=== PATIENT | female | born 1995 | race Caucasian/White ===

== ENCOUNTER 2016-10-22 15:54 | Emergency (ER) | payer OTHER ==
[~2016-10-22] VITALS: Ht 170.2 cm; Wt 131.0 kg
[~2016-10-22 15:54] MED LIST: IBUP800T23 PO; METH750T2 PO; Z.0.BCPILL PO
[2016-10-22 15:58] VITALS: BP 128/85; PULSE 89; RESP 16; TEMP 99; O2SAT 99
[2016-10-22] MEDS ORDERED: [UNRECOGNIZED DRUG - OTHER] (16:08)
[2016-10-22] MEDS ORDERED: ONDANSETRON HCL 4 MG/2 ML VIAL IVP ONE (16:15)
[2016-10-22] MEDS ORDERED: SODIUM CHLORIDE 0.9% FLUSH 10 ML FLUSH IV FLUSH PRN (16:15)
[2016-10-22 16:19] LABS: BLOOD, URINE NEG (NEG); GLUCOSE,URINE NEG (NEG); KETONE, URINE NEG (NEG); NITRITE,URINE NEG (NEG); PH, URINE 5.5 (5.0-8.5)
--- NOTE | 2016-10-22 16:19 | PD ---
HPI Chief Complaint: GI Complaint Time Seen by Provider: 16:05 Travel History International Travel<30 days: No Contact w/Intl Traveler<30days: No Traveled to known affect area: No History of Present Illness HPI The patient was seen and examined in the presence of the nurse. She complains of abdominal pain and cramping for 5 days on and off. She's had some nausea. No constipation or diarrhea or fever. Her abdominal pain has resolved at this time. No alleviating factors. She does feel nausea. Symptoms severity was moderate but now is mild. No abdominal surgeries or medical history. PFSH Past Medical History ADHD: Yes Asthma: Yes Bipolar Disorder: Yes Cancer: No Diabetes: No Diminished Hearing: No GERD: Yes Psychiatric: No Reproductive: Yes (POLY-CYSTIC OVARIES) Immunizations Current: Yes Seizures: No Thyroid Disease: No Ulcer: No ?: Not Past Surgical History Other Surgery: No Social History Alcohol Use: Yes (Occasional use-last use 1 month) Tobacco Use: No Substance Use: No Allergies-Medications (Allergen,Severity, Reaction): Coded Allergies: No Known Allergies (Verified , 10/22/16) Reported Meds & Prescriptions Reported Meds & Active Scripts Active Zofran (Ondansetron HCl) 4 Mg Tab 4 Mg PO Q6HR PRN Tramadol (Tramadol HCl) 50 Mg Tab 50 Mg PO Q6H PRN Reported [Med Study] Review of Systems General / Constitutional: No: Fever Eyes: No: Visual changes HENT: No: Headaches Cardiovascular: No: Chest Pain or Discomfort Respiratory: No: Shortness of Breath Gastrointestinal: Positive: Nausea, Abdominal Pain Genitourinary: No: Dysuria Musculoskeletal: No: Pain Skin: No Rash Neurologic: No: Weakness Psychiatric: No: Depression Endocrine: No: Polydipsia Hematologic/Lymphatic: No: Easy Bruising Physical Exam Narrative GENERAL: Well-nourished, well-developed patient in no apparent distress. SKIN: Focused skin assessment reveals no rash and nodules. Skin is Warm and dry. HEAD: Atraumatic. Normocephalic. EYES: Pupils equal and round. No scleral icterus. No injection or drainage. ENT: No nasal bleeding or discharge. Mucous membranes pink and moist. NECK: Trachea midline. No JVD. CARDIOVASCULAR: Regular rate and rhythm. No murmur appreciated. RESPIRATORY: No accessory muscle use. Clear to auscultation. Breath sounds equal bilaterally. GASTROINTESTINAL: Abdomen soft, non-tender, nondistended. Hepatic and splenic margins not palpable. MUSCULOSKELETAL: No obvious deformities. No clubbing. No cyanosis. No edema. NEUROLOGICAL: Awake and alert. No obvious cranial nerve deficits. Motor grossly within normal limits. Normal speech. PSYCHIATRIC: Appropriate mood and affect; insight and judgment normal. Data Data Last Documented VS Vital Signs Date Time Temp Pulse Resp B/P Pulse Ox O2 Delivery O2 Flow Rate FiO2 10/22/16 15:58 99.0 89 16 128/85 99 Orders Urinalysis - C+S If Indicated (10/22/16 16:01) Complete Blood Count With Diff (10/22/16 16:14) Comprehensive Metabolic Panel (10/22/16 16:14) Lipase (10/22/16 16:14) Prothrombin Time / Inr (Pt) (10/22/16 16:14) Act Partial Throm Time (Ptt) (10/22/16 16:14) Iv Access Insert/Monitor (10/22/16 16:14) NPO (10/22/16 16:14) Ondansetron Inj (Zofran Inj) (10/22/16 16:15) Sodium Chloride 0.9% Flush (Ns Flush) (10/22/16 16:15) Ed Urine Pregnancytest Poc (10/22/16 16:14) Sodium Chlor 0.9% 1000 Ml Inj (Ns 1000 M (10/22/16 16:30) Labs Laboratory Tests Test 10/22/16 10/22/16 16:15 16:20 Urine Collection Type CLEAN CATCH Urine Color STRAW Urine Turbidity CLEAR Urine pH 5.5 Urine Specific Hardy 1.004 Urine Protein NEG mg/dL Urine Glucose (UA) NEG mg/dL Urine Ketones NEG mg/dL Urine Occult Blood NEG Urine Nitrite NEG Urine Bilirubin NEG Urine Leukocyte Esterase NEG Urine WBC 0-2 /hpf Urine Squamous Epithelial 0-5 /hpf Cells Microscopic Urinalysis Comment CULT NOT INDICATED Urine Collection Time 16:15 White Blood Count 10.1 TH/MM3 Red Blood Count 4.53 MIL/MM3 Hemoglobin 12.5 GM/DL Hematocrit 36.9 % Mean Corpuscular Volume 81.6 FL Mean Corpuscular Hemoglobin 27.6 PG Mean Corpuscular Hemoglobin 33.8 % Concent Red Cell Distribution Width 12.2 % Platelet Count 360 TH/MM3 Mean Platelet Volume 8.8 FL Neutrophils (%) (Auto) 66.9 % Lymphocytes (%) (Auto) 20.9 % Monocytes (%) (Auto) 11.4 % Eosinophils (%) (Auto) 0.5 % Basophils (%) (Auto) 0.3 % Neutrophils # (Auto) 6.7 TH/MM3 Lymphocytes # (Auto) 2.1 TH/MM3 Monocytes # (Auto) 1.2 TH/MM3 Eosinophils # (Auto) 0.1 TH/MM3 Basophils # (Auto) 0.0 TH/MM3 CBC Comment DIFF FINAL Differential Comment Prothrombin Time 11.1 SEC Prothromb Time International 1.0 RATIO Ratio Activated Partial 28.5 SEC Thromboplast Time Sodium Level 141 MEQ/L Potassium Level 3.9 MEQ/L Chloride Level 105 MEQ/L Carbon Dioxide Level 27.4 MEQ/L Anion Gap 9 MEQ/L Blood Urea Nitrogen 6 MG/DL Creatinine 0.70 MG/DL Estimat Glomerular Filtration 107 ML/MIN Rate Random Glucose 79 MG/DL Calcium Level 8.3 MG/DL Total Bilirubin 0.5 MG/DL Aspartate Amino Transf 12 U/L (AST/SGOT) Alanine Aminotransferase 19 U/L (ALT/SGPT) Alkaline Phosphatase 47 U/L Total Protein 6.9 GM/DL Albumin 3.2 GM/DL Lipase 141 U/L MDM Medical Decision Making Medical Screen Exam Complete: Yes Emergency Medical Condition: Yes Medical Record Reviewed: Yes Differential Diagnosis Pancreatitis, biliary colic, irritable bowel syndrome, colitis Narrative Course I have reviewed the patient's electronic medical record. Patient was here summer 2015 with cervical strain IV placed I gave her IV Zofran CBC is normal Metabolic profile is normal LFTs are normal Lipase is normal Coagulation studies are normal Urine is negative Urinalysis is clean Patient's abdomen exam is soft and benign and nontender. Her pain has resolved. Her workup here is entirely normal. I don't have any clinical suspicion of an emergent intra-abdominal process at this time. I don't think she needs emergent CT. I recommended a low-fat bland diet and wrote her some medicine for pain and nausea to use if needed just in case symptoms return. She should follow-up with primary care Consideration at that time could be given to outpatient ultrasound. Diagnosis Primary Impression: Abdominal pain Qualified Code: R10.13 - Epigastric pain Additional Instructions: The patient was warned about potential sedation for the medications they will receive on prescription. The patient was advised to follow up with their physician and return if they worsen. Have a low-fat bland diet Med/Other Pt SpecificInfo: Prescription(s) given Scripts Ondansetron (Zofran)4 Mg Tab4 Mg PO Q6HR PRN (NAUSEA OR VOMITING) #15 TAB Ref 0 Prov:Seven Camacho MD 10/22/16 Tramadol 50 Mg Tab50 Mg PO Q6H PRN (PAIN) #20 TAB Ref 0 Prov:Seven Camacho MD 10/22/16 Disposition: 01 DISCHARGE HOME Condition: Stable Seven Camacho MD Oct 22, 2016 16:19
[2016-10-22 16:23] LABS: METHOD OF COLLECTION CLEAN CATCH; URINE COLOR STRAW (YELLW/STRAW)
[2016-10-22 16:24] LABS: COMMENT (UR) CULT NOT INDICATED; CULTURE IF INDICATED CULT NOT INDICATED; SQUAMOUS EPITHELIAL CELL URINE 0-5 /hpf (0-5); WBC, URINE 0-2 /hpf (0-5)
[2016-10-22] MEDS ORDERED: SODIUM CHLOR 0.9% 1000 ML INJ 1,000 ML IV ONE (16:30)
[2016-10-22 16:47] LABS: AUTOMATED NEUTROPHIL # 6.7 TH/MM3 (1.8-7.7); BASOPHIL % 0.3 % (0.0-2.0); EOSINOPHIL # 0.1 TH/MM3 (0-0.4); EOSINOPHIL % 0.5 % (0.0-4.0); HEMATOCRIT 36.9 % (35.0-46.0); HEMO FLAGS DIFF FINAL; LYMPH % 20.9 % (9.0-44.0); LYMPHOCYTE # 2.1 TH/MM3 (1.0-4.8); MEAN CELL VOLUME 81.6 FL (80.0-100.0); MEAN CORPUSCULAR HEMOGLOBIN 27.6 PG (27.0-34.0); MEAN CORPUSCULAR HGB CONC 33.8 % (32.0-36.0); MONO % 11.4 % (0.0-8.0); NEUT % 66.9 % (16.0-70.0); PLATELET COUNT 360 TH/MM3 (150-450); RED BLOOD COUNT 4.53 MIL/MM3 (4.00-5.30); RED CELL DISTRIBUTION WIDTH 12.2 % (11.6-17.2); WHITE BLOOD COUNT 10.1 TH/MM3 (4.0-11.0)
[2016-10-22 16:54] LABS: CHLORIDE 105 MEQ/L (98-107); POTASSIUM 3.9 MEQ/L (3.5-5.1); SODIUM (NA) 141 MEQ/L (136-145)
[2016-10-22 16:58] LABS: ANION GAP 9 MEQ/L (5-15); BICARBONATE 27.4 MEQ/L (21.0-32.0); BLOOD UREA NITROGEN 6 MG/DL (7-18)
[2016-10-22 17:00] LABS: APTT (PATIENT) 28.5 SEC (24.3-30.1); PROTHROMBIN TIME - PATIENT 11.1 SEC (9.8-11.6)
[2016-10-22 17:01] LABS: ALT (GPT) 19 U/L (9-42); AST (GOT) 12 U/L (16-38); GLOMERULAR FILTRATION RATE 107 ML/MIN (>89)
[2016-10-22 17:02] LABS: TOTAL BILIRUBIN ADULT 0.5 MG/DL (0.2-1.0)
[2016-10-22 17:04] LABS: ALKALINE PHOSPHATASE 47 U/L (45-117)
[2016-10-22] MEDS ORDERED: ZOFR4TAB PO (17:33)
[2016-10-22] MEDS ORDERED: TRAM50TA PO (17:33)
== END 2016-10-22 17:50 | disposition home or self-care (01) ==
LOC: PHEFT 15:54
DX: R10.9 Unspecified abdominal pain (principal)
CPT/HCPCS: 80053; 81001; 83690; 84703; 85025; 85610; 85730; 96361; 96374; 99284; J2405; J7030